=== PATIENT | male | born 2000 | race Caucasian/White ===

== ENCOUNTER 2021-05-11 23:40 | Emergency (ER) | payer BC ==
[2021-05-12 00:27] LABS: HEMATOCRIT 50.1 % (42.0-52.0); MEAN CELL VOLUME 86.1 fl (80.0-94.0); MEAN CORPUSCULAR HGB 27.8 pg (27.0-31.0); MEAN CORPUSCULAR HGB CONC 32.3 g/dl (33.0-37.0); MEAN PLATELET VOLUME 9.4 fl (9.6-12.3); PLATELET COUNT AUTOMATED 238 10*3/uL (130-400); RED BLOOD COUNT 5.82 10*6/uL (4.50-5.90); RED CELL DISTRI WIDTH 12.6 % (0-14.5); WHITE BLOOD COUNT 11.9 10*3/uL (4.8-10.8)
[2021-05-12 00:37] LABS: MANUAL DIFF REFLEX YES
[2021-05-12 00:47] LABS: ALKALINE PHOSPHATASE 127 U/L (45-117); BUN 12 mg/dl (7-24); CHLORIDE 104 mmol/L (98-107); CREATININE 1.29 mg/dL (0.70-1.30); LIPASE 101 U/L (73-393); POTASSIUM 3.5 mmol/L (3.5-5.1); SGOT/AST 26 IU/L (3-35); SGPT/ALT 78 U/L (12-78); SODIUM 137 mmol/L (136-145); TOTAL PROTEIN 7.8 gm/dL (6.4-8.2)
[2021-05-12 00:55] LABS: TOTAL CELLS COUNTED 100 #CELLS
[2021-05-12 00:56] LABS: PLATELET SUFFICIENCY NORMAL (NORMAL)
[2021-05-12] MEDS ORDERED: ZOFRAN4 MG PO (01:07)
== END 2021-05-12 01:13 | disposition home or self-care (01) ==
LOC: ED 23:40
PROVIDERS: Internal Medicine
DX: K52.9 Noninfective gastroenteritis and colitis, unspecified (principal)